=== PATIENT | male | born 1985 | race African-American/Black ===

== ENCOUNTER 2017-03-13 21:53 | Emergency (ER) | payer OTHER ==
[~2017-03-13] VITALS: Ht 167.6 cm; Wt 81.6 kg
[2017-03-13 21:58] VITALS: BP 141/91
[2017-03-13] MEDS ORDERED: PANTOPRAZOLE 40 MG TABLET.DR PO ONE ×2 (23:21→23:30)
[2017-03-13] MEDS ORDERED: KETOROLAC TROMETHAMINE INJ 60 MG/2 ML VIAL IM ONE ×2 (23:21→23:30)
--- NOTE | 2017-03-13 23:33 | NUR ---
MEDICATED PATIENT ORDERED.
== END 2017-03-14 00:56 | disposition home or self-care (01) ==
LOC: ER 22:01
DX: R07.89 Other chest pain (principal)
CPT/HCPCS: 71045; 93005; 96372; 99284; A4606; J1885; Z7610